=== PATIENT | female | born 1995 | race African-American/Black ===

== ENCOUNTER 2018-02-09 20:45 | Emergency (ER) | payer SELFPAY ==
[~2018-02-09] VITALS: Ht 157.5 cm; Wt 107.0 kg
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
[2018-02-09] MEDS ORDERED: ROBAXIN500 MG PO (21:42)
[2018-02-09] MEDS ORDERED: IBUPROFEN600 MG ORAL (21:42)
[2018-02-09] MEDS ORDERED: NORCO 5-325 TA1 EACH ORAL (21:42)
[2018-02-09] MEDS ORDERED: Norco 5mg/325mg tab ORAL ONE (21:45)
[2018-02-09 21:55] VITALS: BP_SYST 118; BP_SYST 121; BP_DIAS 73; BP_DIAS 77
[2018-02-09 22:17] LABS: APPEARANCE,URINE CLEAR; BILIRUBIN, URINE NEGATIVE (NEGATIVE); COLOR,URINE PALE YELLOW; GLUCOSE, URINE (UA) NEGATIVE (NEGATIVE); KETONES,URINE NEGATIVE (NEGATIVE); LEUKOCYTE ESTERASE ,URINE 3+ (NEGATIVE); NITRITE,URINE NEGATIVE (NEGATIVE); PH,URINE 6 (4.5-8.0); PROTEIN,URINE NEGATIVE (NEGATIVE); UROBILINOGEN,URINE NORMAL MG/DL (0.0-1.0)
[2018-02-11] MEDS ORDERED: METRONIDAZOLE500 MG ORAL (00:52)
== END 2018-02-09 21:56 | disposition home or self-care (01) ==
LOC: EMR 21:19
DX: S60.219A Contusion of unspecified wrist, initial encounter (principal); S13.4XXA Sprain of ligaments of cervical spine, initial encounter; F17.200 Nicotine dependence, unspecified, uncomplicated; V43.52XA Car driver injured in collision with other type car in traffic accident, initial encounter; Y92.414 Local residential or business street as the place of occurrence of the external cause
CPT/HCPCS: 81003; 81025; 87086; 99283